=== PATIENT | female | born 1975 | race Caucasian/White ===

== ENCOUNTER 2018-10-07 15:46 | Outpatient (CLI) | payer OTHER ==
[2018-10-07 16:09] LABS: CREATININE 0.6 mg/dL (0.4-1.0)
[2018-10-07] MEDS ORDERED: GADOBUTROL 10 MMOL/10 ML VIAL ONE (16:41)
[2018-10-07] MEDS ORDERED: GADOBUTROL 10 MMOL/10 ML VIAL IVP ONE (17:39)
--- NOTE | 2018-10-07 21:29 | MRI Report ---
Reason: BELLS PALSY, TINNITUS Procedure Date: 10/07/2018 Accession Number: [id number] / [id number] Procedure: MRI - Brain W/WO CPT Code: FULL RESULT: EXAM: MRI BRAIN AND INTERNAL AUDITORY CANAL (IAC),WITHOUT AND WITH CONTRAST. EXAM DATE: 10/07/2018 04:38 PM. CLINICAL HISTORY: 43-year-old with tinnitus and Barnes's palsy like symptoms. Evaluate for intracranial pathology. COMPARISON: None. TECHNIQUE: Multiplanar, multisequence T1-weighted and fluid-sensitive MRI sequences of the brain and IACs were performed. Other: None. IV Contrast: 10 cc Gadavist. FINDINGS: Brain Volume: Normal for age. Parenchyma/Dura: No acute hemorrhage, mass, or acute infarct.There a few approximately 3 foci of T2/FLAIR signal hyperintensity seen including anterior left insula (361, image 13). No abnormal enhancement. Internal Auditory Canals (IACs): Normal. No cranial nerve lesion or inflammatory process identified. There is loss of the normal flow related signal involving the right and left superior semicircular canals. It is unclear if this is technical or this represents true loss of fluid suggesting potential otosclerosis. Otherwise the middle air cavities appear normal. Ventricles/Cisterns: No hydrocephalus. No abnormal extra-axial fluid collection or hemorrhage. Orbits: Symmetric and unremarkable. Sella Turcica: The pituitary gland, cavernous sinuses, suprasellar cistern and optic chiasm are unremarkable. Vasculature: Normal signal flow void is seen in the major arterial structures at the skull base. The dural sinuses are patent and enhance normally. Sinuses: No acute sinus disease. Bones: No focal pathologic appearing marrow signal changes. Other: None. IMPRESSION: 1. The internal auditory canals and posterior fossa appear clear with no definite mass or mass-like enhancement seen. 2. There is loss of the normal flow related signal involving the right and left superior semicircular canals. It is unclear if this is technical or this represents true loss of fluid suggesting potential otosclerosis. Otherwise the middle air cavities appear normal. If clinically indicated this can be further evaluated with a CT IAC. 3. No definite acute intracranial pathology seen; specifically, no acute infarct, acute intracranial hemorrhage, mass, hydrocephalus, or midline shift. No abnormal postcontrast enhancement. 4. There are a few scattered white matter changes seen that are nonspecific. Potential etiologies include sequela of prior migraines, sequela of prior infectious/inflammatory process, or sequela of prior toxic/metabolic process. [facility]
== END 2018-10-07 15:47 | disposition home or self-care (01) ==
LOC: LAB 15:46 → DI 15:47
PROVIDERS: ATTEND Otolaryngology Facial Plastic Surgery
DX: G51.0 Bell's palsy (principal); H93.11 Tinnitus, right ear
CPT/HCPCS: 36415; 70553; 82565; 84520; A9585